=== PATIENT | male | born 2000 | race Caucasian/White ===

== ENCOUNTER → 2021-03-16 | Outpatient (CLI) | payer BC | LOC: ZCOL.LAB 18:44 | DX: L01.00 Impetigo, unspecified (principal) ==

== ENCOUNTER → 2021-12-20 | Outpatient (CLI) | payer OTHER | LOC: COL.RAD 12-17 10:30 | DX: S49.92XA Unspecified injury of left shoulder and upper arm, initial encounter (principal) | CPT/HCPCS: A9585; Q9967 ==

== ENCOUNTER 2023-01-22 21:00 | Observation (INO) | payer BC ==
[~2023-01-22] VITALS: Ht 175.3 cm; Wt 86.3 kg
[2023-01-22 22:08] LABS: HEMATOCRIT 42.9 % (42.0-52.0); HEMOGLOBIN 15.1 g/dl (13.5-18.0); MEAN CELL VOLUME 87 fl (80.0-100.0); MEAN CORPUSCULAR HEMOGLOBIN 31 pg (27-31); MEAN CORPUSCULAR HGB CONC 35 g/dl (33.0-37.0); MEAN PLATELET VOLUME 9.4 fl (7.4-10.4); PLATELET COUNT 284 K/mm3 (130-400); RED BLOOD COUNT 4.92 M/mm3 (4.20-5.60); REDCELL DISTRIBUTION WIDTH-CV 11.9 % (11.5-14.5)
[2023-01-22 22:16] LABS: ALBUMIN 3.7 gm/dL (3.5-5.0); BILIRUBIN,TOTAL 0.5 mg/dL (0.2-1.2); CALCIUM 10.2 mg/dL (8.4-10.2); CREATININE, serum 0.99 mg/dL (0.72-1.25); POTASSIUM 3.9 mmol/L (3.5-4.5); TOTAL PROTEIN 7.8 gm/dL (6.2-8.1)
[2023-01-22 22:28] LABS: BAND 1 % (0-10); EOSINOPHIL 2 % (0-4); LYMPHOCYTE 19 % (20.0-51.0); NEUTROPHILS 63 % (42.0-75.2); PLATELET ESTIMATE NORMAL (NORMAL)
[2023-01-23] VITALS (10 sets, daily range): BP systolic 99–127; BP diastolic 50–80; PULSE 51–87; TEMP 97.4–100.4
--- NOTE | 2023-01-23 00:05 | NUR ---
PT ADMITTED TO ROOM 330 PER W/C. A&O. IV NS STARTED AT 125CC/HR TO RT AC. TORODOL IV GIVEN. ZOSYN STARTED. ASSESSMENT COMPLETED. GIRLFRSAUL DAVE IS HERE WITH PATIENT. PT NPO. cCALL LIGHT IN REACH.
[2023-01-23] MEDS ORDERED: VYVANSE50 MG PO (00:22)
[2023-01-23] MEDS ORDERED: MOBIC15 MG PO (00:23)
[2023-01-23] MEDS ORDERED: NEURONTIN300 MG/CAP PO (00:26)
--- NOTE | 2023-01-23 00:43 | NUR ---
UA OBTAINED AND SENT TO LAB.
[2023-01-23 00:51] LABS: COLLECTION METHOD CLEAN CATCH
[2023-01-23 00:56] LABS: MUCOUS Present (NOT PRESENT); SQUAMOUS EPITHELIAL None Seen /hpf (0-10); URINE BACTERIA None Seen /hpf (NONE SEEN); URINE RBC 0-2 /hpf (0-2)
[2023-01-23 00:57] LABS: PH 5.5 (5.0-8.5); URINE APPEARANCE Clear (CLEAR/HAZY); URINE BLOOD TRACE-INTACT (NEGATIVE); URINE COLOR Yellow (YELLOW); URINE GLUCOSE Negative (NEGATIVE); URINE KETONE Negative (NEGATIVE); URINE NITRATE Negative (NEGATIVE); URINE PROTEIN(semi-quant) Negative (NEGATIVE); URINE UROBILINOGEN 0.2 E.U/dL (0.2-1.0)
[2023-01-23] MEDS ORDERED: CYMBALTA 60MG60 MG PO (01:00)
--- NOTE | 2023-01-23 01:35 | NUR ---
PT RESTING. NO DISTRESS.
--- NOTE | 2023-01-23 05:05 | NUR ---
PT RESTING. EASILY WAKES. NO NEEDS AT THIS TIME.
--- NOTE | 2023-01-23 06:25 | NUR ---
PT DENIES ANY NEEDS. PAIN UNDER CONTROL.
[2023-01-23] MEDS ORDERED: NORCO 325 MG-51 TAB PO (08:52)
[2023-01-23] MEDS ORDERED: AMOXICILLIN 8751 TAB PO (08:52)
--- NOTE | 2023-01-23 10:16 | NUR ---
PATIENT ALERT AND ORIENTED X4. VSS. PATIENT HERE FOR PERIRECTAL ABSCESS. PATIENT REPORTS PAIN 3/10, DENIES NEED FOR PAIN MEDICATION. PATIENT BROUGHT BACK FROM OR WITH 4X4, ABD, MESH UNDERWEAR. SCANT AMOUNT OF DRAINAGE ON ABD. PATIENT TO EAT AND DRINK, WILL DISCHARGE IF STABLE. PATIENT DENIES ANY FURTHER NEEDS. POST OP VITALS RUNNING. CALL LIGHT IN REACH.
--- NOTE | 2023-01-23 12:21 | NUR ---
DISCHARGE INSTRUCTIONS PROVIDED. PATIENT EDUCATION GIVEN. DRESSING CHANGE SUPPLIES PROVIDED. FOLLOW UP APPOINTMENT DISCUSSED. MEDICATIONS REVIEWED. PATIENT AND FAMILY DENY AND QUESTIONS OR CONCERNS. DRESSING CHANGE PERFORMED PRIOR TO DISCHARGE. PATIENT ESCORTED OUT VIA WHEELCHAIR.
== END 2023-01-23 12:22 | disposition home or self-care (01) ==
LOC: COL.ER 21:00 → SURG 22:56
PROVIDERS: Nurse Practitioner Primary Care; ADMIT Surgery
DX: K61.1 Rectal abscess (principal); B96.6 Bacteroides fragilis [B. fragilis] as the cause of diseases classified elsewhere
CPT/HCPCS: G0378; J1100; J1885; J2405; J2543; J2704; J3010; J7030; Q9967